=== PATIENT | male | born 1980 | race Caucasian/White ===

== ENCOUNTER 2024-06-22 09:34 | Outpatient (REF) | payer OTHER, SELFPAY ==
[2024-06-22 10:45] LABS: Rheumatoid Factor < 13.0 IU/mL (<15.0)
[2024-06-22 10:47] LABS: Anion Gap 10 (12-20); Blood Urea Nitrogen 9 mg/dL (9-16); Calcium 9.7 mg/dL (8.4-10.2); Carbon Dioxide 30 mmol/L (22-29); Chloride 105 mmol/L (96-108); Estimated Glomerular Filt Rate > 60; Glucose Fasting 94 mg/dL (60-99); Magnesium 2.1 mg/dL (1.6-2.6); Phosphorus 2.3 mg/dL (2.7-4.5); Potassium 4.6 mmol/L (3.3-5.1); Sodium 140 mmol/L (135-145); Uric Acid 5.9 mg/dL (3.4-7.0)
[2024-06-22 10:57] LABS: Erythrocyte Sedimentation Rate 2 MM/HR (0-15)
[2024-06-23 11:28] LABS: Lyme Abs Screen <0.90 index
[2024-06-25 14:43] LABS: Anti Nuclear Antibody Screen POSITIVE (NEGATIVE)
[2024-06-26 13:14] LABS: Aldolase 2.2 U/L (<=8.1)
== END 2024-06-22 09:35 | disposition home or self-care (01) ==
LOC: HO.LAB 09:34
PROVIDERS: Visit Provider Psychiatry & Neurology Neurology
DX: G72.9 Myopathy, unspecified (principal)
CPT/HCPCS: 36415; 80048; 82085; 82550; 83735; 84100; 84550; 85652; 86038; 86039; 86431; 86617; 86618